=== PATIENT | male | born 1955 | race African-American/Black ===

== ENCOUNTER 2021-10-03 17:11 | Inpatient (IN) | payer MEDICARE, OTHER ==
[~2021-10-03] VITALS: Ht 175.3 cm; Wt 97.3 kg
[2021-10-03] MEDS ORDERED: METF-873 PO (17:24)
[2021-10-03] MEDS ORDERED: LOSA50TA41 PO (17:24)
[2021-10-03 18:24] LABS: BASOPHILS % 0.7 % (0.0-2.0); EOSINOPHILS % 3.9 % (0.0-5.0); HEMATOCRIT. 35.8 % (42.0-52.0); HEMOGLOBIN. 11.8 g/dL (14.0-18.0); LYMPHOCYTES % 25.7 % (20.0-50.0); MEAN CORPUSCULAR HEMOGLOBIN 28.1 pg (28.0-32.0); MEAN CORPUSCULAR VOLUME 85.3 fL (80.0-94.0); MEAN PLATELET VOLUME 8.7 fl (7.4-10.4); NEUTROPHILS % 60.7 % (40.0-76.0); PLATELET 684 x1000/uL (130-400); RED CELL DISTRIBUTION WIDTH 16.2 % (11.6-14.6)
[2021-10-03 18:28] LABS: CHLORIDE 110 mEq/L (98-107)
[2021-10-03] MEDS ORDERED: ENOXAPARIN 100MG/ML SYR SUBCUT ONE (21:00)
[2021-10-03 23:28] VITALS: BP 176/82
[2021-10-04] VITALS (7 sets, daily range): BP systolic 113–176; BP diastolic 68–90
[2021-10-04] MEDS ORDERED: DEXTROSE 50% WATER 50ML SYRINGE IV PRN (00:45)
[2021-10-04] MEDS ORDERED: HYDRALAZINE 20MG/ML VIAL IV PRN (00:45)
[2021-10-04] MEDS ORDERED: ACETAMINOPHEN 325MG TABLET PO PRN (00:45)
[2021-10-04] MEDS ORDERED: METF-415 PO (01:15)
[2021-10-04] MEDS ORDERED: LOSA25TA26 PO (01:15)
[2021-10-04] MEDS: INSULIN LISPRO 100 UNITS/ML SUBCUT SCH ×3 (07:00→17:39)
[2021-10-04] MEDS: BLOOD SUGAR DIAGNOSTIC STRIP TEST SCH ×3 (07:00→17:39)
[2021-10-04 07:22] LABS: EOSINOPHILS % 3.5 % (0.0-5.0); HEMATOCRIT. 36.7 % (42.0-52.0); LYMPHOCYTES % 29.4 % (20.0-50.0); MEAN CORPUSCULAR HEMOGLOBIN 27.8 pg (28.0-32.0); MEAN CORPUSCULAR VOLUME 84.9 fL (80.0-94.0); MEAN PLATELET VOLUME 9.1 fl (7.4-10.4); MONOCYTES % 8.2 % (2.0-8.0); NEUTROPHILS % 57.9 % (40.0-76.0); PLATELET 645 x1000/uL (130-400); RED BLOOD CELL COUNT 4.32 mill/uL (4.7-6.1); RED CELL DISTRIBUTION WIDTH 16.3 % (11.6-14.6)
[2021-10-04 07:43] LABS: CHLORIDE 109 mEq/L (98-107)
[2021-10-04 08:04] LABS: HDL CHOLESTEROL 41 mg/dL (40-59); LDL CHOLESTEROL 81 mg/dL (5-100)
[2021-10-04] MEDS ORDERED: LOSARTAN POTASSIUM 25 MG TABLET PO SCH (09:00)
[2021-10-04] MEDS ORDERED: ASPIRIN 81MG TABLET PO SCH (09:00)
[2021-10-04] MEDS ORDERED: PNEUMOCOCCAL 23-VAL P-SAC VAC 0.5 ML IM ONE (09:00)
[2021-10-04] MEDS ORDERED: AMLODIPINE 10MG TABLET PO SCH (09:00)
[2021-10-04] MEDS ORDERED: ENOXAPARIN 30MG/0.3ML SYR SUBCUT SCH (09:00)
[2021-10-04] MEDS: METFORMIN HCL 500MG TABLET PO SCH ×2 (09:04→17:39)
[2021-10-04 18:10] LABS: *AMPHETAMINES SCREEN URINE NEGATIVE (NEGATIVE); *BARBITURATES SCREEN URINE NEGATIVE (NEGATIVE); *BENZODIAZEPINES SCREEN URINE NEGATIVE (NEGATIVE); *COCAINE SCREEN URINE NEGATIVE (NEGATIVE); CANNABINOID URINE SCREEN NEGATIVE (NEGATIVE); METHADONE URINE SCREEN NEGATIVE (NEGATIVE); OPIATES URINE SCREEN NEGATIVE (NEGATIVE); PHENCYCLIDINE URINE SCREEN NEGATIVE (NEGATIVE)
[2021-10-04] MEDS ORDERED: ATORVASTATIN CALCIUM 40MG TABLET PO SCH (21:00)
== END 2021-10-04 18:00 | disposition home or self-care (01) | DRG 206 ==
LOC: ER 17:11 → 7WST 21:06 → ENRESERV 22:20
PROVIDERS: ADMIT Internal Medicine; ATTEND Internal Medicine
DX: M94.0 Chondrocostal junction syndrome [Tietze] (principal); E11.9 Type 2 diabetes mellitus without complications; E78.5 Hyperlipidemia, unspecified; E78.00 Pure hypercholesterolemia, unspecified; I10 Essential (primary) hypertension; Z87.891 Personal history of nicotine dependence; Z79.84 Long term (current) use of oral hypoglycemic drugs; Z79.899 Other long term (current) drug therapy; Z82.3 Family history of stroke; E87.8 Other disorders of electrolyte and fluid balance, not elsewhere classified; D64.9 Anemia, unspecified; M79.602 Pain in left arm
CPT/HCPCS: 36415; 71045; 80048; 80053; 80061; 80305; 82962; 83036; 83880; 84443; 84484; 85025; 90732; 93005; 93306; 99285; J1650